=== PATIENT | male | born 1930 ===

== ENCOUNTER 2017-08-07 14:34 | Inpatient (IN) | payer MEDICARE ==
[2017-08-07] MEDS ORDERED: Albuterol 2.5 MG/3 ML NEB.SOL* (0.083%) INH PRN (17:45)
[2017-08-07 18:05] LABS: Hematocrit 37 % (42-52); Hemoglobin 12.2 g/dl (14.0-18.0); Mean Corpuscular HGB Conc 33 g/dl (31-36); Mean Corpuscular Hemoglobin 32 pg (27-31); Mean Corpuscular Volume 98 fL (80-94); Mean Platelet Volume 8 um3 (7.4-10.4); Red Blood Count 3.82 10^6/ul (4.0-5.4); Red Cell Distribution Width 14 % (10.5-15); White Blood Count 23.2 10^3/ul (3.5-10.8)
[2017-08-07 18:14] LABS: Comments Flag Yes
[2017-08-07 18:15] LABS: Add Diff/Slide Review? Slide Review Added
[2017-08-07 18:18] LABS: Albumin 3.2 g/dL (3.2-5.2); BUN/Creatinine Ratio 13.8 (8-20); Calcium 8.5 mg/dL (8.6-10.3); EGFR African American 52.8 (>60); EGFR Non-African American 41.1 (>60); Globulin 2.6 g/dL (2-4); Potassium 4.8 mmol/L (3.5-5.0); Total Bilirubin 0.5 mg/dL (0.2-1.0); Total Protein 5.8 g/dL (6.4-8.9)
[2017-08-07 18:25] LABS: Troponin I 6.13 ng/mL (<0.04)
[2017-08-07 18:45] LABS: Urine Bacteria Absent (Absent); Urine Bilirubin Negative (Negative); Urine Glucose Negative (Negative); Urine Nitrite Negative (Negative)
[2017-08-07] MEDS: NS 0.9% 1000 ML* 1,000 ML IV SCH (18:50)
[2017-08-07] MEDS ORDERED: Iodixanol* (CONTRAST) 320 MG/ML 100 ML SDV IV ONE (19:00)
--- NOTE | 2017-08-07 21:09 | RAD ---
INDICATION: Cough, shortness of breath and hemoptysis COMPARISON: Chest x-ray dated August 07, 2014 TECHNIQUE: Axial source images were acquired following the administration of 74 mL Visipaque [address] angiographic technique. Coronal and sagittal reconstructed images were constructed and reviewed. FINDINGS: There there are no filling defects in the pulmonary arteries to indicate acute pulmonary embolic disease. Involving predominantly the right upper and middle lobes there is multifocal density with groundglass opacification and air bronchograms. The left lung is grossly clear. There are small bibasilar pleural effusions. The heart is mildly enlarged. There is no pericardial effusion. A single lead cardiac pacemaker is in position. There is coarse atherosclerotic calcification of the aortic arch extending into the proximal portion of the subclavian artery. There is no mediastinal, hilar, or axillary lymphadenopathy. The visualized osseous structures appear normal. Multilevel degenerative change of the thoracic spine includes loss of intervertebral disc height. Limited views of the upper abdomen show no abnormalities. IMPRESSION: 1. No CT of evidence of pulmonary embolism. 2. Multifocal infiltrates partially confluent into consolidation with surrounding groundglass opacification involving the right upper and middle lobes. There is also a small right-sided pleural effusion. The differential diagnosis includes pneumonia, inhalation injury, pneumonitis or malignancy with surrounding lymphangitic carcinomatosis. 3. Additional chronic and degenerative changes described in body the report.
--- NOTE | 2017-08-07 21:50 | HP ---
CC: Dr. Rubalcava; David Harkins DO * HISTORY AND PHYSICAL: DATE OF ADMISSION: 08/07/17 PRIMARY CARE PROVIDER: David Harkins DO ATTENDING PHYSICIAN WHILE IN THE HOSPITAL: Deidre Veras DO * (report dictated by Xavi Giang NP). CHIEF COMPLAINT: Shortness of breath. HISTORY OF PRESENT ILLNESS: Mr. Griffin is an 87-year-old male patient who was transferred over from [facility] today when it was noted that he was having elevated troponins and elevated lactic acid. The patient initially presented to [facility] yesterday with complaints of sudden onset of shortness of breath and also having hemoptysis. On discussion with the patient, he states he has been having shortness of breath first thing in the morning now for several months initially attributed to allergies. He states that he has had been having some orthopnea as well. No weight gain and no swelling and denied having any chest pain. He came into the ER. At [facility], he was found to have a right upper lobe infiltrate. In addition to this, was also found to have an elevated troponin. He was admitted there, started on antibiotics. The troponin went up from 0.3 to 5. His lactic acid was up to 4 and because of this , he was transferred to [facility] for further cardiology evaluation. The patient denies having any chest pain now. He stated that he has had any recent vomiting, no fevers or chills. There has been some sick contacts recently. The patient has been around the family members, who have been sick. He denies having a cough, only cough is in the morning and then as the day progresses and wears on, he feels better. He states he does not have not to sleep on any extra pillows, but he did state today that lying flat was much worse. In [facility], he was started on nitro initially for a blood pressure of 215/100. The blood pressure responded and he also got 80 of Lasix, and actually he became hypotensive and those therapies were stopped. The blood pressure dipped down into 99/44. The patient remained asymptomatic both because of the elevation of those troponins, it was felt that he would need cardiology evaluation and also because of the concern for increase in lactic and sepsis, we were asked to evaluate and transfer for admission. PAST MEDICAL HISTORY: Significant for: 1. AFib. 2. Tachy-blanca syndrome, status post pacemaker placement. 3. GERD. 4. Colon cancer. 5. Hypertension. 6. Carotid artery disease. 7. Hyperlipidemia. 8. Hypothyroidism. PAST SURGICAL HISTORY: 1. He has had a pacemaker. 2. He has had bilateral carpal tunnel repair. 3. Colon resection. HOME MEDICATIONS: According to the list that was provided include: 1. Singulair 10 mg daily. 2. Valsartan 80 mg daily. 3. Prednisone 10 mg daily. 4. Synthroid 75 mcg daily. 5. Omeprazole 20 mg daily. ALLERGIES TO MEDICATIONS: Include PENICILLIN and PROBENECID. SOCIAL HISTORY: He does not smoke. He does not drink. Surrogate decision maker is his daughter, Khadijah. FAMILY HISTORY: Mother had Parkinson's. Father had a history of heart disease. REVIEW OF SYSTEMS: There is no documented fever. He denied any significant weight change. There was no double vision. He denies having any ear discharge. He denies having any rhinorrhea. There is no sore throat, no thyroid enlargement. Denied having any chest pain. He does admit to having nocturnal dyspnea. He denies having any abdominal pain. There was no nausea, no vomiting , no dysuria, no frequency, no loss of consciousness. He denied having any chest pain. Review of 14-systems completed, all others negative. PHYSICAL EXAMINATION GENERAL: At this time, Mr. Griffin is an 87-year-old male patient. He appears to be well nourished, well developed. He does not appear to be in any acute distress. He is sitting in the ICU bed. VITAL SIGNS: Blood pressure 122/47, pulse 60, respirations 20, O2 sat 97% on 3 L, temperature 98.5. HEENT: Head atraumatic. Eyes: EOMs intact. Sclerae anicteric, not pale. Throat: Oral mucosa appears to be moist. No oropharyngeal erythema. NECK : Supple. LUNGS: He did have crackles in the bases. Equal diaphragmatic expansion. HEART: Sounds S1, S2. Regular rate and rhythm. No murmurs, rubs or gallops. ABDOMEN: Soft, some mild distention. Bowel sounds were present. EXTREMITIES: Pulses were 2+ throughout. He had no peripheral edema. He is moving all 4 extremities with 5/5 strength. NEUROLOGIC: The patient is awake. He is alert. He is oriented x3. His tongue is midline. His deputy jailer were equal. He had no gross focal deficits. Skin: Intact. He does have a rash to the lower extremities, which is a chronic issue which he is on prednisone for. DIAGNOSTIC STUDIES/LAB DATA: His labs from [facility] revealed a WBC of 21.07, RBC of 4.36, hemoglobin of 14.3, hematocrit of 42, platelet count of 283. INR of 0.93. PTT at 19.6. Urine showed 1+ bloods, 3 to 5 rbc's. ABG showed a pH of 737, PCO2 of 38, bicarb of 21. Lactic acid at 11:30 was 3.7. Last troponin at 1300 was 5.263. CK-MB of 16.3 and CK of 175. He did have a BMP on admission , glucose 126, BUN 17, creatinine 1.150. Sodium 140, K 4.2, chloride of 102, bicarb 28, calcium 9. His mag was 1.6. AST 32, ALT 35, alk phos 114. Initial troponin was 0.039. He had an EKG obtained in the ED, which showed initially atrial fibrillation at the rate of 93. He had ST depression and PVC. ST depression was noted in V5 and V6. Repeat EKG, he does have paced beats on this repeat EKG, rate of 65. He does have biphasic T-waves in V2, 3 and 5. When I reviewed the previous EKG from the past, he has had the similar T-waves. No ST elevations were noted. He did have a chest x-ray over to [facility] as well. Impression: Large infiltrate, right upper lobe. Old medical records were reviewed. ASSESSMENT AND PLAN: Mr. Griffin is an 87-year-old male patient coming initially to [facility] with complaints of cough, sudden onset of shortness of breath, hemoptysis, on evaluation there found to have increasing lactic acid. In addition to this, found to have increasing troponin. We were asked to evaluate for admission. He was admitted to the RICU for: 1. Pneumonia. He is showing element of systemic inflammatory response syndrome. He had a white count of 21,000. Lactic is climbing. I am going to actually continue fluids and normal saline at 75 an hour. He did give a bolus prior to coming over here for the low blood pressure. He was fluid responsive. He has got Christianson. He is making good urine output. We will continue antibiotics. We will panculture him. I think the culprit could be pneumonia. I am concerned because he did have hemoptysis and he has got this elevated troponin now. I am going to get a CTA of the chest. We will go ahead and again panculture him, get the legionella, get urinalysis and I will continue to follow. I am repeating a CBC and a CMP right now. 2. Elevated troponin. Etiology unclear. This could be demand ischemia from the blood pressure. I am getting an echo. I do not have a previous one that I could see in our system here. We will get a CTA of the chest because of the hemoptysis. I do get the sense that him feeling short of breath in the every morning can possibly be congestive heart failure, so we are going to get the echo. Cardiology has been consulted. He did get a beta-darryl. He got aspirin and Lovenox over to [facility]. So at this point, I am going to await to see what his repeat troponins do. I may consider starting a heparin drip tomorrow morning, but I am leery of doing this because of the hemoptysis, but he did get a low dose Lovenox, so he is covered for 12 hours and he is chest pain free. We will continue to monitor. 3. Atrial fibrillation. He is not on any blood thinners. His rate is controlled. We will follow. He did get a beta-darryl. 4. Hypertension. I did continue his valsartan, but I did write hold parameters. We will monitor. 5. Carotid artery stenosis. He can follow with his primary. 6. Hypothyroidism. Continue with Synthroid. 7. Colon cancer. Follow with primary. 8. Gastroesophageal reflux disease. Continue PPI therapy. 9. Fluid, electrolytes, nutrition. He can have a heart healthy diet. 10. Code status. Full code. 11. DVT prophylaxis. Again, he did get a full dose of Lovenox over to [facility] so I am just putting on SCDs tonight. Tomorrow, we could either continue the therapeutic anticoagulation could put him on subtherapeutic. TIME SPENT: Time spent on the admission was approximately 60 minutes, greater than half time was spent [id number] with the patient obtaining my history and physical, other time was spent going over the plan of care with the patient and implementing plan of care. I did discuss the plan of care with my attending, Dr. Veras, she is in agreement. XAVI GIANG, SILVA [id number]/[facility] #: [id number] FELICITAS
--- NOTE | 2017-08-07 22:26 | RAD ---
INDICATION: Sepsis COMPARISON: None TECHNIQUE: 2 views the abdomen were obtained. FINDINGS: There are air-filled loops of small bowel left upper quadrant measuring up to 2.8 cm in diameter. Gas and stool seen throughout the length of the colon including the rectum. There is no definite intraperitoneal free air. Bilaterally the collecting system and ureters are partially outlined by previously administered IV contrast. IMPRESSION: AIR-FILLED LOOPS OF SMALL BOWEL ARE TOP NORMAL IN THE LEFT UPPER QUADRANT.
[2017-08-08] MEDS: Levothyroxine TAB* 75 MCG TAB PO SCH (05:32)
[2017-08-08 05:57] LABS: Hematocrit 38 % (42-52); Hemoglobin 12.4 g/dl (14.0-18.0); Mean Corpuscular HGB Conc 33 g/dl (31-36); Mean Corpuscular Hemoglobin 32 pg (27-31); Mean Corpuscular Volume 98 fL (80-94); Mean Platelet Volume 8 um3 (7.4-10.4); Red Blood Count 3.84 10^6/ul (4.0-5.4); Red Cell Distribution Width 14 % (10.5-15); White Blood Count 18.8 10^3/ul (3.5-10.8)
[2017-08-08 06:19] LABS: BUN/Creatinine Ratio 16.7 (8-20); Calcium 8.6 mg/dL (8.6-10.3); EGFR African American 59.7 (>60); EGFR Non-African American 46.4 (>60); Potassium 4.3 mmol/L (3.5-5.0)
[2017-08-08 07:50] LABS: Troponin I 5.18 ng/mL (<0.04)
[2017-08-08] MEDS: Azithromycin IV(*) 500 MG in NS 0.9% 250 ML* 250 ML IVPB SCH (08:49)
[2017-08-08] MEDS: NS 0.9% 1000 ML* 1,000 ML IV SCH (08:49)
--- NOTE | 2017-08-08 08:49 | PN ---
Subjective Date of Service: 08/08/17 Interval History: This is an 87 yo gentleman with afib, tachy-blanca syndrome s/p pacer, GERD, HTN , HLD, hypothyroidism, h/o CRC and an unspecified skin condition for which is he is on chronic steroid therapy. Patient was transferred from [facility] yesterday to our ICU for acute respiratory failure, sepsis d/t PNA and elevated troponin which was not clearly ACS v demand ischemia. Patient has been weaned from supp O2 overnight. He is comfortable on RA. Reports cough improved overnight. No c/o CP. No SOB. No abd pain, n/v. He was complaining of abd bloating and gas, this has resolved overnight. Objective Active Medications: Albuterol (Ventolin 2.5 Mg/3 Ml Neb.Angelita*) 2.5 mg INH Q2H PRN PRN Reason: SOB/WHEEZING Aspirin (Aspirin Ec Low Dose*) 81 mg PO DAILY [facility] Atorvastatin Calcium (Lipitor*) 40 mg PO 1700 [facility] Ceftriaxone Sodium 1,000 mg/ (Sodium Chloride) 50 mls @ 200 mls/hr IVPB Q24H DARRYL Azithromycin 500 mg/ Sodium (Chloride) 250 mls @ 250 mls/hr IVPB Q24H [facility] Sodium Chloride (Ns 0.9% 1000 Ml*) 1,000 mls @ 75 mls/hr IV PER RATE [facility] Last Admin: 08/07/17 18:50 Dose: 75 mls/hr Levothyroxine Sodium (Synthroid Tab*) 75 mcg PO DAILY@0600 [facility] Last Admin: 08/08/17 05:32 Dose: 75 mcg Montelukast Sodium (Singulair Tab*) 10 mg PO DAILY [facility] Omeprazole (Prilosec Cap*) 20 mg PO DAILY@0730 [facility] Prednisone (Deltasone Tab*) 10 mg PO DAILY WITH MEAL [facility] Valsartan (Diovan Tab*) 80 mg PO DAILY [facility] Vital Signs: Temp Pulse Resp BP Pulse Ox 99.0 F 59 27 102/61 96 08/08/17 08:00 08/08/17 06:01 08/08/17 06:01 08/08/17 06:01 08/08/17 06:01 Oxygen Devices in Use Now: None Appearance: Well appearing elderly gentleman in NAD. Accompanied by family Respiratory: Symmetrical Chest Expansion and Respiratory Effort, Clear to Auscultation Cardiovascular: NL Sounds; No Murmurs; No JVD, RRR Abdominal: NL Sounds; No Tenderness; No Distention Extremities: No Edema Skin: No Rash or Ulcers Neurological: Alert and Oriented x 3 Result Diagrams: 08/08/17 05:30 08/08/17 05:30 Microbiology and Other Data: Microbiology 08/07/17 21:15 Influenza Types A,B Antigen (JULY) - Final Nasal Specimen received for Influenza A/B Molecular testing 08/07/17 18:22 Legionella Urinary Antigen - Final Urine Negative Legionella Streptococcus pneumoniae Ag Screen - Final Negative S. pneumo Antigen 08/07/17 17:40 Nasal Screen MRSA (PCR)(JULY) - Final Nasal Mrsa Negative Diagnostic Imaging: CTA - no PE, R upper and middle lobe consolidation Abd XR - small bowel diameter upper limits of normal Assess/Plan/Problems-Billing Assessment: This is an 87 yo gentleman with afib, tachy-blanca syndrome s/p pacer, GERD, HTN , HLD, hypothyroidism, h/o CRC, unspecified skin condition on chronic prednisone transferred from [facility] with acute respiratory failure secondary to PNA with elevated troponin. - Patient Problems (1) Acute respiratory failure Comment: Secondary to PNA and perhaps an element of heart failure Initially required BiPap therapy at [facility] Now weaned to RA and tolerating well (2) Sepsis Comment: Secondary to PNA see below (3) Pneumonia Comment: Large infiltrate in R upper and middle lobes Cultures pend Legionella and pneumococcal Ag neg Improving Cont ceftriaxone and azithro (4) Elevated troponin Comment: Most likely demand, no evidence of ACS Trop peaked near 6 No c/o CP No known h/o CAD, no prior cardiac cath Formal cardiology consult pending, no empiric anticoagulation Pend echo Started ASA and statin (5) Atrial fibrillation Comment: Rate controlled Not anticoagulated due to h/o severe nose bleeds (6) Chronic steroid use Comment: 10mg prednisone daily for unspecified skin infection No evidence of shock Normotensive, no need to stress dose steroids at this time (7) Pacemaker Comment: h/o tachy-blanca syndrome Followed by Dr Rubalcava (8) HTN (hypertension) Comment: Now normotensive Cont valsartan (9) HLD (hyperlipidemia) Comment: Pend lipid panel Start statin (10) Hypothyroidism Comment: Cont levothyroxine (11) Full code status (12) DVT prophylaxis Comment: SQ Lovenox Status and Disposition: Inpatient. No need for continued ICU level care, transfer to telemetry floor
[2017-08-08 08:58] LABS: HDL Cholesterol 42.1 mg/dL
[2017-08-08] MEDS: Montelukast Sodium TAB* 10 MG PO SCH (09:00)
[2017-08-08] MEDS: Omeprazole CAP* 20 MG PO SCH (09:00)
[2017-08-08] MEDS: predniSONE TAB* 10 MG PO SCH (09:00)
[2017-08-08] MEDS: Valsartan TAB* 80 MG PO SCH (09:00)
[2017-08-08] MEDS: Aspirin EC Low Dose* 81 MG TAB.EC PO SCH (09:00)
--- NOTE | 2017-08-08 09:07 | ECHO ---
Patient: DEONDRE DASILVA [facility] Rec#: [id number] : 1930 Date: 08/08/2017 Age: 87y Height: 175.26 cm / 69.0 in Weight: 75.75 kg / 167.0 lbs Sex: M BSA: 1.91 Room#: [facility] Admit Date#: 08/07/2017 Type: Inpatient Referring: Stevie Giang NP Reading: Xander Collins DO Supervisor Byproducts: [facility] Transthoracic Echocardiogram Indication: NSTEMI BP: 102/61 HR: 71 Rhythm: Paced Findings History: A-fib, Tachy-Luca syndrome s/p pacer, GERD, colon cancer, HTN, CAD, HLD, hypothyroidism. Technical Comments: The study quality is fair. Completed at 0840. Left Ventricle: The left ventricular chamber size is mildly dilated. Mild to moderate concentric left ventricular hypertrophy is observed. Left ventricular systolic function is at the lower limits of normal. The estimated ejection fraction is 50-55%. There is abnormal ventricular septal wall motion consistent with right ventricular pacemaker. The assessment of diastolic function is non-diagnostic. The basal inferolateral, basal inferior, and mid inferolateral wall segments are hypokinetic (score 2). Overall wallmotion score index is 2.00 Left Atrium: The left atrium is moderately dilated. Right Ventricle: The right ventricle is mildly dilated. The right ventricular global systolic function is mildly reduced. A pacemaker wire is visualized in the right ventricle. Right Atrium: The right atrium is mild to moderately dilated. A pacemaker wire is visualized in the right atrium. Aortic Valve: The aortic valve is trileaflet. Systolic excursion of the aortic valve cusps is reduced. There is evidence of aortic sclerosis without stenosis. There is a trace of aortic regurgitation. Mitral Valve: There is mitral annular calcification. The mitral valve leaflets are mildly thickened. There is mild mitral regurgitation. There is no evidence of mitral stenosis. Tricuspid Valve: The tricuspid valve leaflets are normal. There is mild tricuspid regurgitation. No pulmonary hypertension is noted. There is no tricuspid stenosis. Pulmonic Valve: The pulmonic valve appears normal. There is mild pulmonic regurgitation. There is no pulmonic stenosis. Pericardium: There is no significant pericardial effusion. A pericardial fat pad is visualized. Aorta: There is mild dilatation of the ascending aorta. There is no dilatation of the aortic arch. The aortic root is normal in size. Pulmonary Artery: The main pulmonary artery is not well visualized. Venous: The inferior vena cava appears normal in size. There is a greater than 50% respiratory change in the inferior vena cava dimension. Conclusions The left ventricular chamber size is mildly dilated. Mild to moderate concentric left ventricular hypertrophy is observed. Left ventricular systolic function is at the lower limits of normal. The estimated ejection fraction is 50-55%. There is inferior/inferolateral wall hypokinesis There is abnormal ventricular septal wall motion consistent with right ventricular pacemaker. The left atrium is moderately dilated. The right ventricle is mildly dilated. The right ventricular global systolic function is mildly reduced. A pacemaker wire is visualized in the right ventricle. No pulmonary hypertension is noted. No functionally significant valvular abnormalities noted. Compared to prior study from 08/2014, an inferior/inferolateral wall motion abnormality is now noted Measurements Name Value Normal Range RVIDd (AP) 2D 3.1 cm (0.9 - 2.6) RVDdMajor (2D) 4.9 cm (2.2 - 4.4) RAd ISD 4CH 5.4 cm (3.4 - 4.9) RA (A4C)W 4.9 cm (2.9 - 4.6) IVSd (2D) 1.3 cm (0.6 - 1) LVPWd (2D) 1.3 cm (0.6 - 1) LVIDd (2D) 5.5 cm (3.6 - 5.4) LVIDs (2D) 4.2 cm - LV FS (2D) 23 % (25 - 45) EF Teichholz (2D) 46 % - Aortic Annulus 1.8 cm (1.4 - 2.6) Ao root diameter (2D) 3 cm (2.1 - 3.5) Ascending Ao 3.7 cm (2.1 - 3.4) Aortic arch 2.5 cm (1.8 - 3.4) LA dimension (AP) 2D 4.7 cm (2.3 - 3.8) LAd ISD 4CH 6.6 cm (2.9 - 5.3) LA ISD 4CH W 4.2 cm (2.5 - 4.5) Name Value Normal Range LA ESV SP 4CH (A/L) 80 ml - LA ESV SP 2CH (A/L) 80 ml - LA ESV BP (A/L) index 52 ml/m2 - LA ESV SP 4CH (MOD) 84 ml - LA ESV SP 2CH (MOD) 83 ml - Name Value Normal Range MV E-wave Vmax 1.2 m/sec - MV deceleration time 194.4 msec - LV septal e' Vmax 0.05 m/sec - LV lateral e' Vmax 0.07 m/sec - LV E:e' septal ratio 24 ratio - LV E:e' lateral ratio 17 ratio - Name Value Normal Range AV VTI 35.1 cm - AV peak gradient 14.05 mmHg - AV mean gradient 8.1 mmHg - LVOT diameter 2 cm - LVOT Vmax 0.76 m/sec - LVOT VTI 14.3 cm - LVOT peak gradient 2.34 mmHg - LVOT mean gradient 1.16 mmHg - DOI (VTI) 0.41 ratio - KWAME Vmax 0.66 m/sec - Name Value Normal Range TR Vmax 2.4 m/sec - TR peak gradient 23 mmHg - RAP 3 mmHg - RVSP 26 mmHg - IVC diameter 1.6 cm - Name Value Normal Range PV Vmax 0.92 m/sec - PV peak gradient 3.46 mmHg - AR end-diastolic Vmax 0.83 m/sec - Wallmotion BAS Not Seen BA Not Seen BAL Not Seen IRLANDA Hypokinetic BI Hypokinetic BIS Not Seen MAS Not Seen MA Not Seen MAL Not Seen MIL Hypokinetic GA Not Seen MIS Not Seen Not Seen AA Not Seen AL Not Seen AI Not Seen APEX Not Seen
--- NOTE | 2017-08-08 09:40 | CONSULT ---
Subjective Date of Service: 08/08/17 Interval History: Admission Date: 08/07/17 Consult date 08/08/2017 Provider: Stevie Giang COLLECTIONS ASSOCIATE PMD David Harkins DO Blender [address] Dr. Rubalcava CHIEF COMPLAINT: Shortness of breath Reason for consult: Abnormal troponin level HISTORY OF PRESENT ILLNESS: Mr. Griffin is an 87-year-old man with a history of CKD, PAFib not on anticoagulation due to severe epistaxis, pacemaker admitted with dyspnea and hemoptysis He was diagnosed with a multi-lobar pneumonia. He has received IV antibiotics and has actually improved significantly since yesterday and is currently on room air eating breakfast. He denies any associated chest discomfort. He is oriented to person and place but thinks it is 1997 and is unsure of the month. At baseline he is fairly active and enjoys mowing the lawn on a riding mower. 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 His daughter is at bedside and I explained in detail the pathophysiology and treatment options for this. PAST MEDICAL HISTORY: Significant for: 1. AFib. 2. Tachy-blanca syndrome, status post pacemaker placement. 3. GERD. 4. Colon cancer. 5. Hypertension. 6. Carotid artery disease. 7. Hyperlipidemia. 8. Hypothyroidism. 9. CKD PAST SURGICAL HISTORY: 1. He has had a pacemaker. 2. He has had bilateral carpal tunnel repair. 3. Colon resection. HOME MEDICATIONS: According to the list that was provided include: 1. Singulair 10 mg daily. 2. Valsartan 80 mg daily. 3. Prednisone 10 mg daily. 4. Synthroid 75 mcg daily. 5. Omeprazole 20 mg daily. ALLERGIES TO MEDICATIONS: Include PENICILLIN and PROBENECID. SOCIAL HISTORY: He does not smoke. He does not drink. Surrogate decision maker is his daughter, Khadijah. FAMILY HISTORY: Mother had Parkinson's. Father had a history of heart disease. Medications Active Medications: Albuterol (Ventolin 2.5 Mg/3 Ml Neb.Angelita*) 2.5 mg INH Q2H PRN PRN Reason: SOB/WHEEZING Aspirin (Aspirin Ec Low Dose*) 81 mg PO DAILY [facility] Last Admin: 08/08/17 09:00 Dose: 81 mg Atorvastatin Calcium (Lipitor*) 40 mg PO 1700 [facility] Enoxaparin Sodium (Lovenox(*)) 30 mg SUBCUT Q24H [facility] Ceftriaxone Sodium 1,000 mg/ (Sodium Chloride) 50 mls @ 200 mls/hr IVPB Q24H [facility] Azithromycin 500 mg/ Sodium (Chloride) 250 mls @ 250 mls/hr IVPB Q24H [facility] Last Admin: 08/08/17 08:49 Dose: 250 mls/hr Sodium Chloride (Ns 0.9% 1000 Ml*) 1,000 mls @ 75 mls/hr IV PER RATE [facility] Last Admin: 08/08/17 08:49 Dose: 75 mls/hr Levothyroxine Sodium (Synthroid Tab*) 75 mcg PO DAILY@0600 [facility] Last Admin: 08/08/17 05:32 Dose: 75 mcg Montelukast Sodium (Singulair Tab*) 10 mg PO DAILY [facility] Last Admin: 08/08/17 09:00 Dose: 10 mg Omeprazole (Prilosec Cap*) 20 mg PO DAILY@0730 [facility] Last Admin: 08/08/17 09:00 Dose: 20 mg Prednisone (Deltasone Tab*) 10 mg PO DAILY WITH MEAL [facility] Last Admin: 08/08/17 09:00 Dose: 10 mg Valsartan (Diovan Tab*) 80 mg PO DAILY [facility] Last Admin: 08/08/17 09:00 Dose: 80 mg Home Medications: Omeprazole CAP* [Prilosec CAP*] 20 mg PO DAILY 08/06/14 [History Confirmed 08/07] Valsartan TAB* [Diovan TAB*] 80 mg PO DAILY 08/06/14 [History Confirmed 08/07/17 ] Levothyroxine TAB* [Synthroid TAB*] 75 mcg PO DAILY 08/07/17 [History Confirmed 08/07/17] Montelukast Sodium TAB* [Singulair TAB*] 10 mg PO DAILY 08/07/17 [History Confirmed 08/07/17] predniSONE TAB* [Deltasone TAB*] 10 mg PO DAILY 08/07/17 [History Confirmed 02/18] Review of Systems - Measurements Intake and Output: Intake and Output Last 24 Hours 08/06/17 08/07/17 08/08/17 08/09/17 06:59 06:59 06:59 06:59 Intake Total 1349 Output Total 350 Balance 999 Weight 167 lb 8.821 oz Intake: IV Fluids 769 NS (0.9%) 769 Oral 580 Output: Christianson 350 Other: Estimated Stool Amount Medium - Review of Systems Constitutional Symptoms: Positive: Weakness, Fatigue Dermatology: Positive: Rash, Cancer HEENT: Negative: Change in Hearing, Vertigo Eyes: Negative: Change in Vision, Double Vision Thyroid: Negative: Goiter, Thyroid Nodule, Cold Intolerance, Heat Intolerance, Tremor , Frequent Defecation, Constipation, Palpitations, Primary Hypothyroidism, Primary Hyperthyroidism Pulmonary: Positive: Cough, Sputum, Hemoptysis, Shortness of Breath Negative: Wheezing, Respiratory Distress, COPD, Asthma, Exercise Intolerance , Home Oxygen Cardiology: Positive: Shortness of Breath Negative: Chest Pain, Palpitations, Swelling of Ankles, Peripheral Vascular Dis, Edema, Faintness, Syncope, Claudication, Paroxysmal Nocturnal Dyspnea, Orthopnea Gastroenterology: Negative: Abdominal Pain, Nausea, Vomiting, Anorexia, Indigestion, Difficulty Swallowing, Heartburn, Constipation, Diarrhea Genital - Urinary: Negative: Dysuria, Hematuria Musculoskeletal: Negative: Joint Pain, Joint Stiffness, Arthritis, Osteoporosis Endocrinology: Positive: Obesity Negative: Family Hx Endocrine Disorders, Diabetes, Hyperglycemia, Hypoglycemia, Calluses, Polydipsia, Polyuria Hematologic/Lymphatic: Negative: Hx Leukemia, Hx Lymphoma, Use of Anticoagulant, Use of Antiplatelet Drugs Neurology: Negative: Headaches, Migraines, Change in Vision, Diplopia, Dizziness, Change in Balancing, Change in Coordination, Change in Memory, Change in Speech , Change in Sphincter Function, Change in Walking, Numbness\Paresthesiae, Unexplained Weakness, Hx of Stroke\TIA, Hx Seizures Psychiatry: Negative: Depression, Anxiety Allergic/Immunologic: Negative: Hx HIV, Immunocompromise Review of Systems Statement: All other review of systems negative, unless stated above. Objective Vital Signs: Temp Pulse Resp BP Pulse Ox 99.0 F 69 17 102/61 96 08/08/17 08:00 08/08/17 08:53 08/08/17 08:53 08/08/17 06:01 08/08/17 08:53 Oxygen Devices in Use Now: None Appearance: nad, pleasant Ears/Nose/Mouth/Throat: Clear Oropharnyx, Mucous Membranes Moist Neck: Trachea Midline, - - uncertain jvp Respiratory: Symmetrical Chest Expansion and Respiratory Effort, - - no obvous rales heard Cardiovascular: - - irreuglalry irregular, no signficant murmur Abdominal: NL Sounds; No Tenderness; No Distention Extremities: No Clubbing, Cyanosis Skin: No Rash or Ulcers Neurological: Alert and Oriented x 3 Laboratory Results: 08/08/17 05:30 08/08/17 05:30 INR (Anticoag Therapy) 0.99 (0.89-1.11) 08/07/17 17:40 Total Bilirubin 0.50 mg/dL (0.2-1.0) 08/07/17 17:40 AST 39 U/L (13-39) 08/07/17 17:40 ALT 20 U/L (7-52) 08/07/17 17:40 Alkaline Phosphatase 62 U/L (34-104) 08/07/17 17:40 B-Natriuretic Peptide 572 pg/mL (-100) H 08/07/17 17:40 Total Protein 5.8 g/dL (6.4-8.9) L 08/07/17 17:40 Albumin 3.2 g/dL (3.2-5.2) 08/07/17 17:40 Globulin 2.6 g/dL (2-4) 08/07/17 17:40 Albumin/Globulin Ratio 1.2 (1-3) 08/07/17 17:40 Triglycerides 196 mg/dL 08/08/17 05:30 Cholesterol 174 mg/dL 08/08/17 05:30 LDL Cholesterol 93 mg/dL 08/08/17 05:30 HDL Cholesterol 42.1 mg/dL 08/08/17 05:30 08/07/17 08/07/17 08/07/17 17:40 21:00 23:59 Troponin I 6.13 H* 6.32 H* 5.90 H* 08/08/17 05:30 Troponin I 5.18 H* Diagnostic Imaging: CTA 08/07/2017: No PE: Multifocal infiltrates of Right upper and middle lobes TTE 08/08/2017: LV mildly dilated, mild to moderate LVH, LVEF 50-55% with inferior/inferolateral hypokinesis, RV mildly dilated with mild RV dysfunction, pacemaker in place, LA moderately dilated, normal estimated PASP, no significant valvular abnormalities noted. EKG Data: EKG 08/08/2017: Afib, V-paced, PVC's EKG 08/07/2017: AFib, V-paced, pvc tele: no ventricular arrhythmias Assessment/Plan Mr. Griffin is an 87-year-old man with a history of CKD, PAFib not on anticoagulation due to severe epistaxis, pacemaker, admitted RUL/RML pneumonia and hemoptysis and an enzymatically small type 2 FL in the setting of CKD, LVH, likely underlying obstructive CAD and pneumonia. No evidence of a type 1 plaque disruption FL, LVEF 50-55% - We discussed risks and benefits of aspirin and patient is willing to try understanding possibility of worsening hemoptysis and recurrent severe epistaxis. - Given the fact that he is not on anticoagulation with atrial fibrillation due to severe bleeding in the past would not start at this time. - Would not add a second anti-platelet, I think the risks outweigh the benefits and I discussed this with patient and family. - Continue ARB - Would check lipid panel and start a statin - Once further stable would start a beta-darryl - Would consider repeat lung imaging at some point in future to evaluate for underlying malignancy. - Given rapid improvement in overall status with IV antibiotics and limitations as described above, will pursue medical management of his cardiac disease and this was discussed with patient and his daughter are very agreeable with this. Thank you for allowing me to participate in the cardiovascular care of this patient. Please do not hesitate to contact me with questions or concerns.
[2017-08-08] MEDS: cefTRIAXone VIAL(*) 1,000 MG in NS 0.9% 50 ML* 50 ML IVPB SCH (10:39)
[2017-08-08] MEDS: Enoxaparin(*) 30 MG/0.3 ML SYR SUBCUT SCH (10:39)
[2017-08-08] MEDS: Atorvastatin* 40 MG TAB PO SCH (15:58)
[2017-08-09] MEDS: Levothyroxine TAB* 75 MCG TAB PO SCH (05:05)
[2017-08-09 06:28] LABS: BUN/Creatinine Ratio 18.7 (8-20); Calcium 8.4 mg/dL (8.6-10.3); EGFR African American 71.6 (>60); EGFR Non-African American 55.7 (>60)
[2017-08-09] MEDS ORDERED: NS 0.9% 250 ML* 500 ML ONE (09:41)
[2017-08-09] MEDS: Aspirin EC Low Dose* 81 MG TAB.EC PO SCH (09:49)
[2017-08-09] MEDS: predniSONE TAB* 10 MG PO SCH (09:49)
[2017-08-09] MEDS: Azithromycin IV(*) 500 MG in NS 0.9% 250 ML* 250 ML IVPB SCH (09:49)
[2017-08-09] MEDS: Omeprazole CAP* 20 MG PO SCH (09:49)
[2017-08-09] MEDS: Montelukast Sodium TAB* 10 MG PO SCH (09:49)
[2017-08-09] MEDS: Enoxaparin(*) 30 MG/0.3 ML SYR SUBCUT SCH (09:49)
[2017-08-09 11:16] LABS: Hematocrit 35 % (42-52); Hemoglobin 11.9 g/dl (14.0-18.0); Mean Corpuscular HGB Conc 34 g/dl (31-36); Mean Corpuscular Hemoglobin 32 pg (27-31); Mean Corpuscular Volume 97 fL (80-94); Red Blood Count 3.67 10^6/ul (4.0-5.4); Red Cell Distribution Width 14 % (10.5-15); White Blood Count 17.6 10^3/ul (3.5-10.8)
[2017-08-09 11:17] LABS: Add Diff/Slide Review? Slide Review Added; Comments Flag Yes
[2017-08-09 11:45] LABS: Mean Platelet Volume 9 um3 (7.4-10.4)
[2017-08-09] MEDS: cefTRIAXone VIAL(*) 1,000 MG in NS 0.9% 50 ML* 50 ML IVPB SCH (12:48)
[2017-08-09] MEDS: Valsartan TAB* 80 MG PO SCH (12:49)
[2017-08-09] MEDS: Atorvastatin* 40 MG TAB PO SCH (17:03)
--- NOTE | 2017-08-09 19:01 | PN ---
Subjective Date of Service: 08/09/17 Interval History: Patient denies any new complaints. Continues to improve with SOB having only occasional spells of labored breathing that self resolve with no provoking factors through the day. Failed void trial with replacement of crain. Erika urine with clots seen beginning at 0300 this morning with no other urinary symptoms. No CP, N/V, F/C, diarrhea, constipation. Family History: Unchanged from Admission Social History: Unchanged from Admission Past Medical History: Unchanged from Admission Objective Active Medications: Albuterol (Ventolin 2.5 Mg/3 Ml Neb.Angelita*) 2.5 mg INH Q2H PRN PRN Reason: SOB/WHEEZING Aspirin (Aspirin Ec Low Dose*) 81 mg PO DAILY [facility] Last Admin: 08/09/17 09:49 Dose: 81 mg Atorvastatin Calcium (Lipitor*) 40 mg PO 1700 [facility] Last Admin: 08/09/17 17:03 Dose: 40 mg Enoxaparin Sodium (Lovenox(*)) 30 mg SUBCUT Q24H [facility] Last Admin: 08/09/17 09:49 Dose: 30 mg Ceftriaxone Sodium 1,000 mg/ (Sodium Chloride) 50 mls @ 200 mls/hr IVPB Q24H [facility] Last Admin: 08/09/17 12:48 Dose: 200 mls/hr Azithromycin 500 mg/ Sodium (Chloride) 250 mls @ 250 mls/hr IVPB Q24H [facility] Last Admin: 08/09/17 09:49 Dose: 250 mls/hr Sodium Chloride (Ns 0.9% 1000 Ml*) 1,000 mls @ 75 mls/hr IV PER RATE [facility] Last Admin: 08/08/17 08:49 Dose: 75 mls/hr Levothyroxine Sodium (Synthroid Tab*) 75 mcg PO DAILY@0600 [facility] Last Admin: 08/09/17 05:05 Dose: 75 mcg Montelukast Sodium (Singulair Tab*) 10 mg PO DAILY [facility] Last Admin: 08/09/17 09:49 Dose: 10 mg Omeprazole (Prilosec Cap*) 20 mg PO DAILY@0730 [facility] Last Admin: 08/09/17 09:49 Dose: 20 mg Prednisone (Deltasone Tab*) 10 mg PO DAILY WITH MEAL [facility] Last Admin: 08/09/17 09:49 Dose: 10 mg Valsartan (Diovan Tab*) 80 mg PO DAILY [facility] Last Admin: 08/09/17 12:49 Dose: 80 mg Vital Signs 08/08/17 08/08/17 08/08/17 19:23 20:00 20:32 Temperature 98.4 F Pulse Rate 58 Respiratory 24 24 Rate Blood Pressure 131/54 (mmHg) O2 Sat by Pulse 99 95 Oximetry 08/08/17 08/08/17 08/09/17 23:31 23:46 02:58 Temperature 99.1 F 97.8 F Pulse Rate 65 67 Respiratory 20 20 Rate Blood Pressure 170/64 161/79 (mmHg) O2 Sat by Pulse 95 95 95 Oximetry 08/09/17 08/09/17 08/09/17 07:37 08:00 10:57 Temperature 99.3 F 99.5 F Pulse Rate 61 75 Respiratory 18 20 18 Rate Blood Pressure 148/52 124/60 (mmHg) O2 Sat by Pulse 97 98 98 Oximetry 08/09/17 11:18 Temperature 99.5 F Pulse Rate 75 Respiratory 18 Rate Blood Pressure 124/60 (mmHg) O2 Sat by Pulse 98 Oximetry Oxygen Devices in Use Now: None Appearance: Patient is a 87yo male who appears stated age and is sitting comfortably in the chair in [facility]. Eyes: No Scleral Icterus, PERRLA Ears/Nose/Mouth/Throat: NL Teeth, Lips, Gums, Clear Oropharnyx, Mucous Membranes Moist Neck: NL Appearance and Movements; NL JVP, Trachea Midline Respiratory: Symmetrical Chest Expansion and Respiratory Effort, - - Decreased breath sounds on the Right side. Crackles in the b/l lung bases. No other adventitious sounds. Cardiovascular: NL Sounds; No Murmurs; No JVD, No Edema, - - Irregularly irregular rhythm Abdominal: NL Sounds; No Tenderness; No Distention, No Hepatosplenomegaly Skin: No Rash or Ulcers, No Nodules or Sclerosis Neurological: - - Shuffling unstable gait, A/Ox2. Result Diagrams: 08/09/17 10:57 08/09/17 05:03 Microbiology and Other Data: Microbiology 08/07/17 21:15 Influenza Types A,B Antigen (JULY) - Final Nasal Specimen received for Influenza A/B Molecular testing 08/07/17 18:22 Legionella Urinary Antigen - Final Urine Negative Legionella Streptococcus pneumoniae Ag Screen - Final Negative S. pneumo Antigen 08/07/17 17:40 Nasal Screen MRSA (PCR)(JULY) - Final Nasal Mrsa Negative Diagnostic Imaging: CTA - no PE, R upper and middle lobe consolidation Abd XR - small bowel diameter upper limits of normal Assess/Plan/Problems-Billing Assessment: This is an 87 yo gentleman with afib, tachy-blanca syndrome s/p pacer, GERD, HTN , HLD, hypothyroidism, h/o CRC, unspecified skin condition on chronic prednisone transferred from [facility] with acute respiratory failure secondary to PNA with elevated troponin. - Patient Problems (1) Acute respiratory failure Current Visit: Yes Status: Acute Code(s): J96.00 - ACUTE RESPIRATORY FAILURE , UNSP W HYPOXIA OR HYPERCAPNIA SNOMED Code(s): 03448165 Comment: Secondary to PNA and perhaps an element of heart failure Initially required BiPap therapy at [facility] Now weaned to RA and tolerating well (2) Atrial fibrillation Current Visit: Yes Status: Acute Code(s): I48.91 - UNSPECIFIED ATRIAL FIBRILLATION SNOMED Code(s): 23287222 Comment: Rate controlled Not anticoagulated due to h/o severe nose bleeds (3) Elevated troponin Current Visit: Yes Status: Acute Code(s): R74.8 - ABNORMAL LEVELS OF OTHER SERUM ENZYMES SNOMED Code(s): 065650788 Comment: Most likely demand, no evidence of ACS Trop peaked near 6 No c/o CP No known h/o CAD, no prior cardiac cath Formal cardiology consult pending, no empiric anticoagulation Pend echo Started ASA and statin (4) HLD (hyperlipidemia) Current Visit: Yes Status: Acute Code(s): E78.5 - HYPERLIPIDEMIA, UNSPECIFIED SNOMED Code(s): 55895693 Comment: Pend lipid panel Start statin, concern with lipitor for previous leg cramps. Will trial again and try different agent if AE recurs. (5) HTN (hypertension) Current Visit: Yes Status: Acute Code(s): I10 - ESSENTIAL (PRIMARY) HYPERTENSION SNOMED Code(s): 47810933 Comment: Now normotensive Cont valsartan (6) Pneumonia Current Visit: Yes Status: Acute Code(s): J18.9 - PNEUMONIA, UNSPECIFIED ORGANISM SNOMED Code(s): 115858114 Comment: Large infiltrate in R upper and middle lobes Cultures show 1+ E coli, will continue therapy. Legionella and pneumococcal Ag neg Improving Cont ceftriaxone and azithro (7) GERD (gastroesophageal reflux disease) Current Visit: No Status: Chronic Code(s): K21.9 - GASTRO-ESOPHAGEAL REFLUX DISEASE WITHOUT ESOPHAGITIS SNOMED Code(s): 849610355 Comment: Continue home omeprazole. (8) DVT prophylaxis Current Visit: Yes Status: Acute Code(s): LVH8638 - SNOMED Code(s): 457134585 Comment: SQ Lovenox (9) Urinary retention Current Visit: Yes Status: Acute Code(s): R33.9 - RETENTION OF URINE, UNSPECIFIED SNOMED Code(s): 045015862 Comment: Will not retrial removal of crain due to trauma of previous insertion. Status and Disposition: Inpatient. Improving, will discharge when medically ready, estimated 1-2 days.
[2017-08-10] MEDS: Levothyroxine TAB* 75 MCG TAB PO SCH (05:08)
[2017-08-10 05:38] LABS: Hematocrit 32 % (42-52); Hemoglobin 10.8 g/dl (14.0-18.0); Mean Corpuscular HGB Conc 34 g/dl (31-36); Mean Corpuscular Hemoglobin 33 pg (27-31); Mean Corpuscular Volume 97 fL (80-94); Mean Platelet Volume 8 um3 (7.4-10.4); Red Blood Count 3.32 10^6/ul (4.0-5.4); Red Cell Distribution Width 13 % (10.5-15); White Blood Count 13.3 10^3/ul (3.5-10.8)
[2017-08-10 05:54] LABS: BUN/Creatinine Ratio 14.3 (8-20); Calcium 8.8 mg/dL (8.6-10.3); EGFR African American 69.6 (>60); EGFR Non-African American 54.1 (>60)
--- NOTE | 2017-08-10 08:34 | RAD ---
HISTORY: Lung mass, sepsis, pneumonia COMPARISONS: CT dated August 07, 2017 VIEWS: 1: frontal portable view of the chest at a left-sided pacemaker is noted. FINDINGS: LINES AND TUBES: None. CARDIOMEDIASTINAL SILHOUETTE: The cardiomediastinal silhouette is normal for portable technique. PLEURA: The costophrenic angles are sharp. No pleural abnormalities are noted. LUNG PARENCHYMA: Again noted is patchy alveolar opacification throughout the right lung field, corresponding to the groundglass opacification noted on CT this is similar to the CT examination. ABDOMEN: The upper abdomen is clear. There is no subphrenic gas. BONES AND SOFT TISSUES: No bone or soft tissue abnormalities are noted. IMPRESSION: Persistent diffuse airspace disease of the right lung.
[2017-08-10] MEDS ORDERED: NS 0.9% 250 ML* 250 ML ONE (08:42)
[2017-08-10] MEDS: Azithromycin IV(*) 500 MG in NS 0.9% 250 ML* 250 ML IVPB SCH (08:47)
[2017-08-10] MEDS: Valsartan TAB* 80 MG PO SCH (08:54)
[2017-08-10] MEDS: Enoxaparin(*) 30 MG/0.3 ML SYR SUBCUT SCH (08:55)
[2017-08-10] MEDS: predniSONE TAB* 10 MG PO SCH (08:55)
[2017-08-10] MEDS: Omeprazole CAP* 20 MG PO SCH (08:55)
[2017-08-10] MEDS: Montelukast Sodium TAB* 10 MG PO SCH (08:55)
[2017-08-10] MEDS: Aspirin EC Low Dose* 81 MG TAB.EC PO SCH (08:55)
[2017-08-10] MEDS: cefTRIAXone VIAL(*) 1,000 MG in NS 0.9% 50 ML* 50 ML IVPB SCH (10:37)
--- NOTE | 2017-08-10 14:46 | PN ---
Subjective Date of Service: 08/10/17 Interval History: Patient feels better since yesterday, still has hemoptysis. Patient has new onset wheezing that was not present yesterday. Patient only oriented to person and place. Family concerned about going home today because of continued hemoptysis, wheezing and unsteady gait. Family History: Unchanged from Admission Social History: Unchanged from Admission Past Medical History: Unchanged from Admission Objective Active Medications: Albuterol (Ventolin 2.5 Mg/3 Ml Neb.Angelita*) 2.5 mg INH Q2H PRN PRN Reason: SOB/WHEEZING Aspirin (Aspirin Ec Low Dose*) 81 mg PO DAILY [facility] Last Admin: 08/10/17 08:55 Dose: 81 mg Atorvastatin Calcium (Lipitor*) 40 mg PO 1700 [facility] Last Admin: 08/09/17 17:03 Dose: 40 mg Azithromycin (Zithromax Tab*) 250 mg PO DAILY [facility] Enoxaparin Sodium (Lovenox(*)) 30 mg SUBCUT Q24H [facility] Last Admin: 08/10/17 08:55 Dose: 30 mg Ceftriaxone Sodium 1,000 mg/ (Sodium Chloride) 50 mls @ 200 mls/hr IVPB Q24H [facility] Last Admin: 08/10/17 10:37 Dose: 200 mls/hr Sodium Chloride (Ns 0.9% 1000 Ml*) 1,000 mls @ 75 mls/hr IV PER RATE [facility] Last Admin: 08/08/17 08:49 Dose: 75 mls/hr Levothyroxine Sodium (Synthroid Tab*) 75 mcg PO DAILY@0600 [facility] Last Admin: 08/10/17 05:08 Dose: 75 mcg Montelukast Sodium (Singulair Tab*) 10 mg PO DAILY [facility] Last Admin: 08/10/17 08:55 Dose: 10 mg Omeprazole (Prilosec Cap*) 20 mg PO DAILY@0730 [facility] Last Admin: 08/10/17 08:55 Dose: 20 mg Prednisone (Deltasone Tab*) 10 mg PO DAILY WITH MEAL [facility] Last Admin: 08/10/17 08:55 Dose: 10 mg Valsartan (Diovan Tab*) 80 mg PO DAILY [facility] Last Admin: 08/10/17 08:54 Dose: 80 mg Vital Signs 08/09/17 08/09/17 08/09/17 15:55 20:00 21:08 Temperature 99.1 F 98.4 F Pulse Rate 63 60 Respiratory 18 16 18 Rate Blood Pressure 156/76 149/70 (mmHg) O2 Sat by Pulse 98 98 Oximetry 08/09/17 08/10/17 08/10/17 23:49 00:00 03:16 Temperature 98.7 F 98.4 F Pulse Rate 64 60 Respiratory 20 20 Rate Blood Pressure 152/69 140/48 (mmHg) O2 Sat by Pulse 96 95 97 Oximetry 08/10/17 08/10/17 08/10/17 08:00 08:12 09:28 Temperature 99.0 F Pulse Rate 60 60 Respiratory 16 16 16 Rate Blood Pressure 153/72 (mmHg) O2 Sat by Pulse 98 90 Oximetry Oxygen Devices in Use Now: None Appearance: Patient is an 87yo male who appears stated age sitting comfortably in the bed in [facility]. Eyes: No Scleral Icterus, PERRLA Ears/Nose/Mouth/Throat: NL Teeth, Lips, Gums, Clear Oropharnyx, Mucous Membranes Moist Neck: NL Appearance and Movements; NL JVP Respiratory: Symmetrical Chest Expansion and Respiratory Effort, - - Diminished lung sounds with rhonchi and wheezes on right side. Cardiovascular: NL Sounds; No Murmurs; No JVD, RRR, No Edema Abdominal: NL Sounds; No Tenderness; No Distention, No Hepatosplenomegaly Lymphatic: No Cervical Adenopathy Extremities: No Edema, No Clubbing, Cyanosis Skin: No Rash or Ulcers, No Nodules or Sclerosis Neurological: - - Alert only to person and place, pleasantly confused. CN II- XII grossly intact. Result Diagrams: 08/10/17 05:27 08/10/17 05:27 Microbiology and Other Data: Microbiology 08/07/17 21:15 Influenza Types A,B Antigen (JULY) - Final Nasal Specimen received for Influenza A/B Molecular testing 08/07/17 18:22 Legionella Urinary Antigen - Final Urine Negative Legionella Streptococcus pneumoniae Ag Screen - Final Negative S. pneumo Antigen 08/07/17 17:40 Nasal Screen MRSA (PCR)(JULY) - Final Nasal Mrsa Negative Diagnostic Imaging: CTA - no PE, R upper and middle lobe consolidation Abd XR - small bowel diameter upper limits of normal Assess/Plan/Problems-Billing Assessment: This is an 87 yo gentleman with afib, tachy-blanca syndrome s/p pacer, GERD, HTN , HLD, hypothyroidism, h/o CRC, unspecified skin condition on chronic prednisone transferred from [facility] with acute respiratory failure secondary to PNA with elevated troponin. - Patient Problems (1) Acute respiratory failure Current Visit: Yes Status: Acute Code(s): J96.00 - ACUTE RESPIRATORY FAILURE , UNSP W HYPOXIA OR HYPERCAPNIA SNOMED Code(s): 57871716 Comment: Secondary to PNA and perhaps an element of heart failure Initially required BiPap therapy at [facility] Now weaned to RA and tolerating well (2) Atrial fibrillation Current Visit: Yes Status: Acute Code(s): I48.91 - UNSPECIFIED ATRIAL FIBRILLATION SNOMED Code(s): 76279212 Comment: Rate controlled Not anticoagulated due to h/o severe nose bleeds (3) Elevated troponin Current Visit: Yes Status: Acute Code(s): R74.8 - ABNORMAL LEVELS OF OTHER SERUM ENZYMES SNOMED Code(s): 204409170 Comment: Most likely demand, no evidence of ACS Trop peaked near 6, No c/o CP Appreciate Cardiology consult. Started ASA and statin, continue Valsartan, Start BB. (4) HLD (hyperlipidemia) Current Visit: Yes Status: Acute Code(s): E78.5 - HYPERLIPIDEMIA, UNSPECIFIED SNOMED Code(s): 13207226 Comment: Lipid panel LDL 93, HDL 42. Start statin, concern with lipitor for previous leg cramps. Will trial again and try different agent if AE recurs. CK normal after 2 days of treatment. (5) HTN (hypertension) Current Visit: Yes Status: Acute Code(s): I10 - ESSENTIAL (PRIMARY) HYPERTENSION SNOMED Code(s): 67343422 Comment: Slightly hypertensive Cont valsartan, begin Metoprolol Succinate 25mg PO daily. (6) Pneumonia Current Visit: Yes Status: Acute Code(s): J18.9 - PNEUMONIA, UNSPECIFIED ORGANISM SNOMED Code(s): 377842813 Comment: Large infiltrate in R upper and middle lobes Cultures show 1+ E coli, will continue therapy. Legionella and pneumococcal Ag neg Improving, Cont ceftriaxone and transition to PO azithromycin to finish a 5 day course. (7) GERD (gastroesophageal reflux disease) Current Visit: No Status: Chronic Code(s): K21.9 - GASTRO-ESOPHAGEAL REFLUX DISEASE WITHOUT ESOPHAGITIS SNOMED Code(s): 649911238 Comment: Continue home omeprazole. (8) DVT prophylaxis Current Visit: Yes Status: Acute Code(s): WGM8563 - SNOMED Code(s): 005501295 Comment: SQ Lovenox (9) Urinary retention Current Visit: Yes Status: Acute Code(s): R33.9 - RETENTION OF URINE, UNSPECIFIED SNOMED Code(s): 247081604 Comment: Will not retrial removal of crain due to trauma of previous insertion. Urine bloody on 08/09 in afternoon, clear and yellow on 08/10 Will follow up with urology outpatient. Will prescribe flomax .4mg nightly. Status and Disposition: Inpatient. Improving, will discharge when medically ready, estimated 1-2 days.
[2017-08-10] MEDS: Metoprolol Succinate XL TAB* 25 MG PO SCH ×2 (15:48→15:56)
[2017-08-10] MEDS: Atorvastatin* 40 MG TAB PO SCH (15:56)
[2017-08-10] MEDS ORDERED: Tamsulosin CAP* 0.4 MG PO SCH (21:00)
[2017-08-11] MEDS: Levothyroxine TAB* 75 MCG TAB PO SCH (04:58)
[2017-08-11 05:20] LABS: Hematocrit 33 % (42-52); Hemoglobin 10.8 g/dl (14.0-18.0); Mean Corpuscular HGB Conc 33 g/dl (31-36); Mean Corpuscular Hemoglobin 32 pg (27-31); Mean Corpuscular Volume 99 fL (80-94); Mean Platelet Volume 8 um3 (7.4-10.4); Red Blood Count 3.35 10^6/ul (4.0-5.4); Red Cell Distribution Width 14 % (10.5-15); White Blood Count 10.3 10^3/ul (3.5-10.8)
[2017-08-11 05:39] LABS: BUN/Creatinine Ratio 15.7 (8-20); C Reactive Protein 156.56 mg/L (< 5.00); Calcium 8.8 mg/dL (8.6-10.3); EGFR Non-African American 56.7 (>60); Potassium 3.7 mmol/L (3.5-5.0)
[2017-08-11 08:03] VITALS: BP 144/61
[2017-08-11] MEDS ORDERED: Azithromycin TAB* 250 MG PO SCH (09:00)
[2017-08-11] MEDS: cefTRIAXone VIAL(*) 1,000 MG in NS 0.9% 50 ML* 50 ML IVPB SCH (10:05)
[2017-08-11] MEDS: Enoxaparin(*) 30 MG/0.3 ML SYR SUBCUT SCH (10:05)
[2017-08-11] MEDS: Aspirin EC Low Dose* 81 MG TAB.EC PO SCH (10:07)
[2017-08-11] MEDS: Metoprolol Succinate XL TAB* 25 MG PO SCH (10:07)
[2017-08-11] MEDS: Omeprazole CAP* 20 MG PO SCH (10:07)
[2017-08-11] MEDS: Montelukast Sodium TAB* 10 MG PO SCH (10:07)
[2017-08-11] MEDS: predniSONE TAB* 10 MG PO SCH (10:07)
[2017-08-11] MEDS: Valsartan TAB* 80 MG PO SCH (10:07)
--- NOTE | 2017-08-11 12:22 | RAD ---
HISTORY: Abdominal distention COMPARISONS: August 07, 2017 VIEWS: Frontal views of the abdomen. FINDINGS: BOWEL: There is a nonobstructive bowel gas pattern. There is gaseous distention of the colon without dilatation. CALCULI: There are no abnormal calculi. BONES AND SOFT TISSUES: Degenerative changes are noted OTHER FINDINGS: The lung bases are clear. There is no subphrenic gas. IMPRESSION: NONOBSTRUCTIVE BOWEL GAS PATTERN. GASEOUS DISTENTION OF THE COLON WITHOUT DILATATION.
--- NOTE | 2017-08-12 06:46 | DS ---
AMENDED REPORT NOW INCLUDES COSIGNER DESIGNATION - ESIGNED BEFORE ADJUSTMENTS CC: David Harkins DO * DISCHARGE SUMMARY: DATE OF ADMISSION: 08/07/17 DATE OF DISCHARGE: 08/11/17 PRIMARY CARE PROVIDER: David Harkins DO CONSULTING PROVIDER: Xander Collins DO MY ATTENDING WHILE IN THE HOSPITAL: Wendy Pabon MD * (DICTATED BY JONAH JUÁREZ) PRIMARY DISCHARGE DIAGNOSES: 1. Right upper and middle lobe pneumonia with sepsis. 2. Non-ST elevation myocardial infarction. SECONDARY DISCHARGE DIAGNOSES: 1. Hypertension. 2. Urinary retention. 3. Gastroesophageal reflux disease. 4. Atrial fibrillation. 5. Hyperlipidemia. 6. Colon cancer. 7. Carotid artery disease. STUDIES DONE WHILE IN THE HOSPITAL: 1. Chest thorax CTA from 08/07/[address] evidence of pulmonary embolism , multifocal infiltrates, partially confluent to consolidation with surrounding ground-glass opacification involving the right upper and middle lobes. There is also small right-sided pleural effusion. Differential diagnoses includes pneumonia, inhalations, right pneumonitis, malignancy with surrounding lymphangitic carcinomatosis, additional chronic and degenerative changes as described in the body of the report. 2. Electrocardiogram from 08/07/17 read as ventricular paced rhythm, rate 66, uninterpretable ST segment changes. 3. Transthoracic echocardiogram read as left ventricular size mildly dilated, mild to moderate concentric left ventricular hypertrophy, left ventricular systolic function with lower limits of normal estimated ejection fraction 50% to 55%, inferior and inferolateral wall hypokinesis, abnormal ventricular septal wall motion consistent with ventricular pacemaker, left atrium, moderately dilated left ventricle, mildly dilated right ventricular global systolic function mildly reduced, pacemaker wire visualized in the right ventricle, no pulmonary hypertension, no significant valvular abnormalities on compared to prior study from 08/17 and inferior/inferior parietal wall motion abnormalities not noted. 4. Abdomen x-ray from 08/07/17 shows air filled loops of small bowel are top normal in the left upper quadrant. Gas and stool seen throughout the length of the colon and rectum. 5. Chest x-ray from 08/10/17 read as persistent diffuse airspace disease in the right lung. 6. Abdomen x-ray from 08/11/17 read as nonobstructing bowel gas pattern and gassy distention in the colon without dilatation. MEDICATIONS: Medications at discharge: 1. Valsartan 80 mg p.o. daily. 2. Omeprazole 20 mg p.o. daily. 3. Singulair 10 mg p.o. daily. 4. Prednisone 10 mg p.o. daily. 5. Levothyroxine 75 mcg p.o. daily. New medications at discharge: 1. Albuterol inhalation powder 108 mcg inhalation q.4 hours as needed for wheezing. 2. Aspirin 81 mg p.o. daily. 3. Lipitor 40 mg p.o. nightly. 4. Cefpodoxime 200 mg p.o. q.12 hours for 10 days. 5. Metoprolol succinate 25 mg p.o. daily. 6. Tamsulosin 0.4 mg p.o. at bedtime. Discontinued medications at discharge: None. HOSPITAL COURSE: This is a brief summary of the patient's hospital course. For more details, please see the history and physical by Stevie Giang NP and records from [facility]. In brief, the patient is an 87-year-old male who presented to [facility] with lactic acidosis, shortness of breath, and elevated troponin. The patient was given fluids, Lasix, and antibiotics at [facility] and then was transferred when his troponin was found to be approximately 5. Transfer was accepted and the patient was admitted to [facility], sent to the ICU. The patient was on BiPAP at [facility] , but was able to be successfully weaned. Upon arrival to [facility] , the patient's blood pressure was 215/100 at [facility] and he was given nitro and 80 mg of Lasix IV and his blood pressure dropped to 99/44. The patient's blood pressure responded to fluid administration. The patient had a Christianson inserted for fluid monitoring. The patient also has hemoptysis with cough and sputum production. The patient's CTA was negative at [facility] as stated above. The patient improved dramatically over his first day admitted and was able to be transferred from the ICU to the telemetry floor. The patient 's Christianson was removed, but he was found to have a postvoid residual approximately 250 mL and his Christianson was put back in. The patient continued to make good urine throughout this whole time. The patient's abdomen was found to be distended. Abdomen x-ray was ordered on 08/07/17 and showed results as above. Cardiology was consulted on 08/08/17 and believed that his NSTEMI was related to [id number] mismatch ischemia with obstructed epicardial CAD. No catheterization was recommended at that time. Please see his primary's report for more details, but his recommendations included starting a statin, starting a beta-darryl when stable and starting aspirin for secondary prevention of [place]. He also recommended repeat lung imaging at some point to evaluate for underlying malignancy. The patient continued to improve and was seen by physical therapy and found to have decreased functional tolerance, but the patient's family said they could be with him 27/05 and it was arranged for him to have home physical therapy upon discharge. The patient continued to have hemoptysis and rhonchi in his right lung along with occasional wheezing that responded well to DuoNebs. The patient has underlying dementia and was consistently oriented only to person and place throughout the hospitalization. The patient was started on metoprolol succinate 25 mg daily and tolerated this well. The patient's Legionella and pneumococcal urine antigens came back negative. Sputum culture showed 1+ E. coli and 1+ Staph aureus. The patient was decided to be continued on empiric therapy due to improvement. The patient finished a 5-day course of azithromycin on 08/11/17. At this point, he had 5 doses of ceftriaxone as well. The patient's urine showed blood on 08/10/17, which resolved by 08/11/17. This was believed to have been due to traumatic reinsertion of the Christianson possibly due to underlying inflammation of the prostate and urethra from the initial insertion of the Christianson as well as underlying BPH. The patient did not have BPH symptoms at home. The patient was started on Flomax and the Christianson was decided to remain in place supposed to second void trial to avoid exacerbating any inflammation of the urinary tract and prostate. The patient and family were agreeable to going home with home PT and continued antibiotics. They were informed of the need to follow up with Urology and to get a CT in 6 weeks to ensure resolution of the lung mass and exclude malignancy. The patient had daily soft bowel movements without blood. PHYSICAL EXAMINATION ON DAY OF DISCHARGE: General: The patient is an 87-year- old male who appears stated age and is sitting comfortably in the chair, in no acute distress. Vital Signs: Temperature 98.9, pulse rate 63, respiratory rate 18, oxygen saturation 94%, and blood pressure 144/61. HEENT: Head: Normocephalic, atraumatic. Sclerae anicteric. No conjunctival injection. Mucous membranes moist. No clots visible in the nose. Mouth: Pharynx nonerythematous. Neck: Supple, nontender. No lymphadenopathy. No carotid bruits auscultated. Cardiac: Irregularly irregular rhythm. No clicks, murmurs , gallops, or rubs. Pulses 2+ in the bilateral dorsalis pedis, posterior tibialis, and radial areas. Respiratory: Good air exchange bilaterally. There are slight rhonchi and wheezes heard over the right lower lobe. No other adventitious lung noises improved from previous exam. Abdomen: Distended, tympanic to percussion, nontender. Genitourinary: No suprapubic tenderness. No CVA tenderness. The patient has a Christianson inserted, which was draining clear yellow urine. Skin: Clean, dry, and intact. Psychiatric: The patient is pleasant and cooperative. Neuro: Cranial nerves II through XII grossly intact. Alert and oriented x2. Walks with unsteady gait. No other weakness noted. DISCHARGE PLAN: The patient will be discharged home with 27/05 supervision from his family due to high fall risk. The patient will be started on new medications of Lipitor, metoprolol succinate, Flomax, cefpodoxime, and aspirin for 10 days. As stated above, the patient finished his 5-day course of azithromycin. The patient will have home PT to help restore functional status. Activity as tolerated. The patient will have a heart healthy and no caffeine diet. The patient will have an albuterol inhaler as needed for wheezing. The patient will follow up with his primary care doctor within a week for management of his new medications and repeat blood work to be drawn to assess for adverse effects from his medications and resolution of his pneumonia. The patient will follow up with Urology in 1 to 2 weeks to remove Christianson. The patient should have a CT scan in 6 weeks to ensure resolution of infiltrate. Family asked many questions about the patient's discharge process and followup, which were answered to their satisfaction. This is a brief summary of the hospital course. For more details, please see the medical record. TIME SPENT: Approximately 75 minutes were spent on the discharge, 45 of which were spent [id number] with the patient's family answering questions and discussing the treatment plan as well. JONAH JUÁREZ [id number]/[facility] #: [id number] FELICITAS
== END 2017-08-11 14:50 | disposition home or self-care (01) | DRG 871 ==
LOC: ICU 17:29 → MEDTELE 08-08 08:39
PROVIDERS: ADMIT Internal Medicine; ATTEND Internal Medicine
DX: A41.9 Sepsis, unspecified organism (principal); J15.5 Pneumonia due to Escherichia coli; J96.00 Acute respiratory failure, unspecified whether with hypoxia or hypercapnia; I21.4 Non-ST elevation (NSTEMI) myocardial infarction; I48.91 Unspecified atrial fibrillation; R04.2 Hemoptysis; I49.5 Sick sinus syndrome; I13.10 Hypertensive heart and chronic kidney disease without heart failure, with stage 1 through stage 4 chronic kidney disease, or unspecified chronic kidney disease; I24.8 Other forms of acute ischemic heart disease; R74.8 Abnormal levels of other serum enzymes; E78.5 Hyperlipidemia, unspecified; K21.9 Gastro-esophageal reflux disease without esophagitis; E03.9 Hypothyroidism, unspecified; I65.29 Occlusion and stenosis of unspecified carotid artery; N18.9 Chronic kidney disease, unspecified; Z85.038 Personal history of other malignant neoplasm of large intestine; Z95.0 Presence of cardiac pacemaker; I25.10 Atherosclerotic heart disease of native coronary artery without angina pectoris; R33.9 Retention of urine, unspecified; Z79.52 Long term (current) use of systemic steroids; Z79.899 Other long term (current) drug therapy; Z88.0 Allergy status to penicillin; Z88.8 Allergy status to other drugs, medicaments and biological substances; Z82.49 Family history of ischemic heart disease and other diseases of the circulatory system
CPT/HCPCS: 36415; 71010; 71275; 74000; 80048; 80053; 80061; 81003; 81015; 82550; 83605; 83880; 84484; 85025; 85610; 86140; 87040; 87070; 87077; 87086; 87186; 87205; 87502; 87641; 87899; 93005; 93306; 94760; A9270-GY; J0456; J0696; J1650; J7512; Q9967